=== PATIENT | female | born 1995 | race Caucasian/White ===

== ENCOUNTER 2018-10-28 10:54 | Outpatient (CLI) | payer BC ==
[2018-10-28 15:17] LABS: ADD UMIC YES; UR AMORPHOUS CRYSTAL FEW /HPF (NONE SEEN); UR ASCORBIC ACID NEGATIVE (NEGATIVE); UR BACTERIA FEW /HPF (NONE SEEN); UR BILIRUBIN (Dip) NEGATIVE (NEGATIVE); UR BLOOD (Dip) 1+ mg/dL (NEGATIVE); UR CLARITY CLOUDY (CLEAR); UR COLOR YELLOW (YELLOW); UR GLUCOSE (Dip) NEGATIVE (NEGATIVE); UR KETONES (Dip) NEGATIVE (NEGATIVE); UR LEUKOCYTE ESTERASE (Dip) NEGATIVE Leu/ul (NEGATIVE); UR MUCUS FEW /HPF (NONE SEEN); UR NITRITE (Dip) NEGATIVE (NEGATIVE); UR RBC 1 /HPF (0-5); UR SPECIFIC GRAVITY (Dip) 1.015 (1.003-1.030); UR SQUAMOUS EPITHELIAL CELL FEW /HPF (FEW); UR TOTAL PROTEIN (Dip) NEGATIVE (NEGATIVE); UR UROBILINOGEN (Dip) NEGATIVE (NEGATIVE); UR WBC 4 /HPF (0-5)
== END 2018-10-28 18:33 | disposition home or self-care (01) ==
LOC: OBT 10:54 → L-D 10:55 → OBT 18:33
DX: O46.93 Antepartum hemorrhage, unspecified, third trimester (principal); Z3A.35 35 weeks gestation of pregnancy
CPT/HCPCS: 76817; 76818; 81001; 87086

== ENCOUNTER 2018-11-24 04:40 | Inpatient (IN) | payer BC ==
[2018-11-24] MEDS ORDERED: OXYTOCIN 10 UNIT INJ (04:54)
[2018-11-24] MEDS ORDERED: CARBOPROST 250 MCG INJ IM ×2 (05:00→05:30)
[2018-11-24] MEDS ORDERED: IBUPROFEN 600 MG TAB PO (05:00)
[2018-11-24] MEDS ORDERED: LIDOCAINE 1% (MPF) 30 ML INJ INJ (05:00)
[2018-11-24] MEDS ORDERED: METHYLERGONOVINE 0.2 MG INJ IM ×2 (05:00→05:30)
[2018-11-24] MEDS ORDERED: MISOPROSTOL 200 MCG TAB PR ×2 (05:00→05:30)
[2018-11-24] MEDS ORDERED: OXYTOCIN 30 UNITS/LR 500 ML IV ×4 (05:00→05:30)
[2018-11-24] MEDS: OXYTOCIN 10 UNIT INJ IM ×2 (05:14→05:15)
[2018-11-24] MEDS ORDERED: HYDROCODONE/APAP (5/325) TAB PO (05:30)
[2018-11-24] MEDS: IBUPROFEN 600 MG TAB PO ×4 (05:35→23:41)
[2018-11-24 06:08] LABS: ADD MAN DIFF? NO
[2018-11-24 06:18] LABS: BASOPHILS % 0.3 % (0.0-2.0); EOSINOPHILS # 0.1 10^3/ul (0.0-0.5); EOSINOPHILS % 0.6 % (0.0-7.0); HEMATOCRIT 33.5 % (37.0-47.0); HEMOGLOBIN 10.7 g/dl (12.0-16.0); LYMPHOCYTES # 1.4 10^3/ul (0.8-2.9); LYMPHOCYTES % 13.3 % (15.0-51.0); MEAN CORPUSCULAR HEMOGLOBIN 27.2 pg (29.0-33.0); MEAN CORPUSCULAR HGB CONC 31.9 g/dl (32.0-37.0); MEAN CORPUSCULAR VOLUME 85.2 fl (82.0-101.0); MEAN PLATELET VOLUME 11.3 fl (7.4-10.4); MONOCYTE # 0.7 10^3/ul (0.3-0.9); MONOCYTES % 6.3 % (0.0-11.0); NEUTROPHIL # 8.1 10^3/ul (1.6-7.5); NEUTROPHILS % 78.9 % (39.0-77.0); PLATELET COUNT 244 10^3/UL (140-415); RED BLOOD COUNT 3.93 10^6/ul (4.20-5.40); RED CELL DISTRIBUTION WIDTH 15.8 % (11.5-14.5)
[2018-11-24 06:18] LABS: WHITE BLOOD COUNT 10.2 10^3/ul (4.8-10.8)
[2018-11-24 06:36] LABS: INR 0.94; PROTIME 12.7 Sec (11.9-14.9)
[2018-11-24 06:37] LABS: PARTIAL THROMBOPLASTIN TIME 29.8 Sec (23.0-35.0)
[2018-11-24 07:16] LABS: HEPATITIS B SURFACE ANTIGEN NEGATIVE (NEGATIVE)
[2018-11-24 14:56] LABS: RAPID PLASMA REAGIN NONREACTIVE (NR)
[2018-11-24] MEDS: LANOLIN HPA 1 PKT TOP (17:02)
[2018-11-25] MEDS: IBUPROFEN 600 MG TAB PO ×3 (05:42→18:47)
[2018-11-25 08:36] LABS: ADD MAN DIFF? NO
[2018-11-25 08:56] LABS: WHITE BLOOD COUNT 6.9 10^3/ul (4.8-10.8)
[2018-11-25 08:56] LABS: BASOPHILS % 0.4 % (0.0-2.0); EOSINOPHILS # 0.2 10^3/ul (0.0-0.5); EOSINOPHILS % 2.3 % (0.0-7.0); HEMOGLOBIN 11.5 g/dl (12.0-16.0); LYMPHOCYTES # 1.7 10^3/ul (0.8-2.9); LYMPHOCYTES % 24.9 % (15.0-51.0); MEAN CORPUSCULAR HEMOGLOBIN 27.6 pg (29.0-33.0); MEAN CORPUSCULAR HGB CONC 31.9 g/dl (32.0-37.0); MEAN CORPUSCULAR VOLUME 86.3 fl (82.0-101.0); MEAN PLATELET VOLUME 11.1 fl (7.4-10.4); MONOCYTE # 0.5 10^3/ul (0.3-0.9); MONOCYTES % 7.3 % (0.0-11.0); NEUTROPHIL # 4.4 10^3/ul (1.6-7.5); NEUTROPHILS % 64.5 % (39.0-77.0); PLATELET COUNT 230 10^3/UL (140-415); RED BLOOD COUNT 4.17 10^6/ul (4.20-5.40); RED CELL DISTRIBUTION WIDTH 16.2 % (11.5-14.5)
[2018-11-26] MEDS: IBUPROFEN 600 MG TAB PO ×3 (00:17→11:54)
[2018-11-26] MEDS: MEASLES,MUMPS,RUBELLA VACCINE INJ SC* (05:37)
[2018-11-26] MEDS: DIPHTH/TET/ACEL PERTUSS (ADULT) 0.5 ML VIAL IM* (09:54)
== END 2018-11-26 15:55 | disposition home or self-care (01) | DRG 807 ==
LOC: OBT 04:40 → L-D 04:45 → PP1 08:09
PROVIDERS: Obstetrics & Gynecology
PROC: 10E0XZZ Delivery of Products of Conception, External Approach (ICD-10-PCS; principal; 2018-11-24)
DX: O99.824 Streptococcus B carrier state complicating childbirth (principal); Z37.0 Single live birth; O34.83 Maternal care for other abnormalities of pelvic organs, third trimester; N94.89 Other specified conditions associated with female genital organs and menstrual cycle; Z3A.39 39 weeks gestation of pregnancy; Z23 Encounter for immunization
CPT/HCPCS: 76705; 85025; 85610; 85730; 86592; 86850; 86900; 86901; 87340; 90715